=== PATIENT | female | born 1985 | race Caucasian/White ===

== ENCOUNTER → 2017-03-19 | Outpatient (CLI) | payer MEDICAID, OTHER | LOC: HPND 08:18 | PROVIDERS: ATTEND Obstetrics & Gynecology | DX: O35.0XX0 Maternal care for (suspected) central nervous system malformation in fetus, not applicable or unspecified (principal); O28.3 Abnormal ultrasonic finding on antenatal screening of mother; O35.1XX0 Maternal care for (suspected) chromosomal abnormality in fetus, not applicable or unspecified | CPT/HCPCS: 76811; 76825; 76827; 93325 ==

== ENCOUNTER → 2017-04-02 | Outpatient (CLI) | payer OTHER | LOC: HPND 08:22 | PROVIDERS: ATTEND Obstetrics & Gynecology | DX: O35.0XX0 Maternal care for (suspected) central nervous system malformation in fetus, not applicable or unspecified (principal) | CPT/HCPCS: 76815 ==

== ENCOUNTER → 2017-04-23 | Outpatient (CLI) | payer OTHER | LOC: HPND 08:17 | PROVIDERS: ATTEND Obstetrics & Gynecology | DX: O35.1XX0 Maternal care for (suspected) chromosomal abnormality in fetus, not applicable or unspecified (principal) | CPT/HCPCS: 76816 ==

== ENCOUNTER 2017-06-12 14:11 | Inpatient (IN) | payer OTHER ==
[2017-06-12] VITALS (63 sets, daily range): BP systolic 75–136; BP diastolic 48–107; PULSE 65–173; RESP 18–20; TEMP 98–98.7
[~2017-06-12] VITALS: Ht 162.6 cm; Wt 67.0 kg
[~2017-06-12 14:11] MED LIST: IBUP600 PO; PERI8.6T PO
[2017-06-12] MEDS ORDERED: PREN29TA PO (14:37)
[2017-06-12] MEDS ORDERED: LACTATED RINGER'S 1000 ML INJ 1,000 ML IV PRN (15:04)
--- NOTE | 2017-06-12 15:04 | HHI.HP ---
HPI Chief Complaint Water broke not in pain Date Seen: Jun 12, 2017 Time Seen: 14:55 Travel History International Travel<30 Days: No Contact w/Intl Traveler<30Days: No Known Affected Area: No History of Present Illness HPI Patient is a 31-year-old white female at [address] Ortiz for care and complain s of spontaneous rupture membranes at 11:00 today , no contractions or pain no bleeding, heart rate tracing is reactive and she is not julián on the monitor Weeks Gestation: 36 Para: 2 : 4 Miscarriage: 1 History Obstetric History Obstetric History 2 vaginal deliveries at term Social History Alcohol Use: No Tobacco Use: No Substance Abuse: No Allergies-Medications (Allergen,Severity, Reaction): Coded Allergies: No Known Allergies (Verified Allergy, Unknown, 06/12/17) Home Meds Reported Medications Vit-Iron Carbonyl ( Plus Iron 29-1 mg) 29 Mg Iron-1 Mg Tab, 1 TAB PO DAILY for Nutritional Supplement, #30 TAB 0 Refills 06/12/17 Review of Systems General / Constitutional: No: Fever, Weight Gain, Chills, Other Eyes: No: Diploplia, Blurred Vision, Visual changes, Pain, Photophobia HENT: No: Headaches, Vertigo, Lightheadedness Cardiovascular: No: Irregular Rhythm, Chest Pain or Discomfort, Palpitations, Tachycardia, Syncope, Varicosities, Edema, Cyanosis Respiratory: No: Cough, Short of Breath, Other Gastrointestinal: No: Nausea, Vomiting, Diarrhea Genitourinary: No: Decreased Urinary Output, Oliguria Musculoskeletal: No: Limited ROM, Weakness, Cramping, Edema, Pain Skin: No Rash, No Itching, No Dryness, No Lumps, No Change in Pigmentation, No Change in Nails, No Alopecia, No Lesions Neurologic: No: Weakness, Dizziness, Syncope, Focal Abnormalities, Coordination Problem, Headache, Slurred Speech, Seizures Psychiatric: No: Depression, Suicidal Ideations, Homicidal Ideation Endocrine: No: Heat Intolerance, Cold Intolerance, Polydipsia, Polyuria, Other Physical Exam Narrative GENERAL: Well-nourished, well-developed patient. SKIN: Warm and dry. HEAD: Normocephalic and atraumatic. EYES: No scleral icterus. No injection or drainage. ENT: No nasal drainage noted. Mucous membranes pink. Airway patent. NECK: Supple, trachea midline. No JVD. CARDIOVASCULAR: Regular rate and rhythm without murmurs, gallops, or rubs. RESPIRATORY: Breath sounds equal bilaterally. No accessory muscle use. BREASTS: Bilateral exam showed no masses , no retractions, no nipple discharge. ABDOMEN/GI: Abdomen soft, non-tender, bowel sounds present, no rebound, no guarding Gravid to [36-] weeks size Fundal Height: [36-] GENITOURINARY: External Genitalia: intact and normal in appearance BUS glands: [-] Cervix: [Posterior-] Dilatation: [Finger tip] Effacement: [-Thick] Station: [-3] Presentation: [vtx-] Membranes: [ ruptured] Uterine Contractions: [-No regular contractions] FHT's: Category: [1-] Baseline: [-133] Reactive: [R-] Variability: [mod-] Decels: [none-] EXTREMITIES: No cyanosis or edema. BACK: Nontender without obvious deformity. No CVA tenderness. NEUROLOGICAL: Awake and alert. Motor and sensory grossly within normal limits. Five out of 5 muscle strength in all muscle groups. Normal speech. Caprini VTE Risk Assessment Caprini VTE Risk Assessment: No/Low Risk (score <= 1) Caprini Risk Assessment Model Point Value = 1 Point Value = 2 Point Value = 3 Point Value = 5 Age 41-60 Minor surgery BMI > 25 kg/m2 Swollen legs Varicose veins or History of unexplained or recurrent spontaneous Oral contraceptives or hormone replacement Sepsis (< 1 month) Serious lung disease, including pneumonia (< 1 month) Abnormal pulmonary function Acute myocardial infarction Congestive heart failure (< 1 month) History of inflammatory bowel disease Medical patient at bed rest Age 61-74 Arthroscopic surgery Major open surgery (> 45 min) Laparoscopic surgery (> 45 min) Malignancy Confined to bed (> 72 hours) Immobilizing plaster cast Central venous access Age >= 75 History of VTE Family history of VTE Factor V Leiden Prothrombin [id number] Lupus anticoagulant Anticardiolipin antibodies Elevated serum homocysteine Heparin-induced thrombocytopenia Other congenital or acquired thrombophilia Stroke (< 1 month) Elective arthroplasty Hip, pelvis, or leg fracture Acute spinal cord injury (< 1 month) Prophylaxis Regimen Total Risk Factor Score Risk Level Prophylaxis Regimen 0-1 Low Early ambulation 2 Moderate Order ONE of the following: *Sequential Compression Device (SCD) *Heparin 5000 units SQ BID 3-4 Higher Order ONE of the following medications: *Heparin 5000 units SQ TID *Enoxaparin/Lovenox 40 mg SQ daily (WT < 150 kg, CrCl > 30 mL/min) *Enoxaparin/Lovenox 30 mg SQ daily (WT < 150 kg, CrCl > 10-29 mL/min) *Enoxaparin/Lovenox 30 mg SQ BID (WT < 150 kg, CrCl > 30 mL/min) AND/OR *Sequential Compression Device (SCD) 5 or more Highest Order ONE of the following medications: *Heparin 5000 units SQ TID (Preferred with Epidurals) *Enoxaparin/Lovenox 40 mg SQ daily (WT < 150 kg, CrCl > 30 mL/min) *Enoxaparin/Lovenox 30 mg SQ daily (WT < 150 kg, CrCl > 10-29 mL/min) *Enoxaparin/Lovenox 30 mg SQ BID (WT < 150 kg, CrCl > 30 mL/min) AND *Sequential Compression Device (SCD) Data Data Labs amnisure positive Assessment/Plan Assessment and Plan Patient is a 31-year-old white female at [address] Ortiz for care presents with spontaneous rupture membranes, no bleeding no contractions. heart rate tracing is reactive, and amnisure positive Plan-admission the hospital, augment/induce labor, do a rapid GBS screen, anticipate vaginal delivery, this case was discussed with Dr. Ortiz who agrees on the our management plan Wu Wolf II, MD Jun 12, 2017 15:04
[2017-06-12] MEDS ORDERED: SODIUM CHLORID 0.9% 500 ML INJ 500 ML IV PRN (15:15)
[2017-06-12] MEDS ORDERED: CITRIC ACID-SODIUM CITRATE LIQ 30 ML UDC PO SCH (15:15)
[2017-06-12] MEDS ORDERED: LIDOCAINE HCL 1% 50 ML VIAL I-DERMAL PRN (15:15)
[2017-06-12] MEDS ORDERED: MINERAL OIL 10 ML VIAL TOPICAL PRN (15:15)
[2017-06-12] MEDS ORDERED: LIDOCAINE HCL 1% 50 ML VIAL INFIL PRN (15:15)
[2017-06-12] MEDS ORDERED: OXYTOCIN 30 UNITS-500ML PREMIX 500 ML IV ONE (15:15)
[2017-06-12] MEDS ORDERED: PENICILLIN G POTASSIUM INJ 5,000,000 UNITS in SODIUM CHLORIDE 0.9% INJ 100 ML IV ONE (15:15)
[2017-06-12] MEDS ORDERED: OXYTOCIN 30 UNITS-500ML PREMIX 500 ML IV PRN (15:15)
[2017-06-12] MEDS ORDERED: SODIUM CHLOR 0.9% 1000 ML INJ 1,000 ML IV PRN (15:24)
[2017-06-12] MEDS: LACTATED RINGER'S 1000 ML INJ 1,000 ML IV SCH ×3 (15:44→20:28)
[2017-06-12 16:04] LABS: AMORPHOUS SEDIMENT, URINE RARE; AUTOMATED NEUTROPHIL # 10.2 TH/MM3 (1.8-7.7); BACTERIA, URINE RARE /hpf; BASOPHIL # 0.1 TH/MM3 (0-0.2); BASOPHIL % 0.4 % (0.0-2.0); BILIRUBIN, URINE NEG (NEG); BLOOD, URINE MOD (NEG); EOSINOPHIL # 0.1 TH/MM3 (0-0.4); EOSINOPHIL % 0.6 % (0.0-4.0); GLUCOSE,URINE NEG (NEG); HEMATOCRIT 35.9 % (35.0-46.0); HEMOGLOBIN 12.2 GM/DL (11.6-15.3); KETONE, URINE 10 mg/dL (NEG); LYMPH % 11.7 % (9.0-44.0); LYMPHOCYTE # 1.5 TH/MM3 (1.0-4.8); MEAN CELL VOLUME 86.6 FL (80.0-100.0); MEAN CORPUSCULAR HEMOGLOBIN 29.3 PG (27.0-34.0); MEAN CORPUSCULAR HGB CONC 33.9 % (32.0-36.0); MEAN PLATELET VOLUME 9.1 FL (7.0-11.0); MONO % 7.5 % (0.0-8.0); MUCUS URINE FEW /lpf (OCC); NEUT % 79.8 % (16.0-70.0); NITRITE,URINE NEG (NEG); PH, URINE 6.5 (5.0-8.5); PLATELET COUNT 199 TH/MM3 (150-450); RED BLOOD COUNT 4.14 MIL/MM3 (4.00-5.30); RED CELL DISTRIBUTION WIDTH 12.6 % (11.6-17.2); SQUAMOUS EPITHELIAL CELL URINE 10 /hpf (0-5); URINE COLOR LIGHT-YELLOW (YELLW/STRAW); URINE LEUKOCYTE ESTERASE NEG (NEG); WHITE BLOOD COUNT 12.7 TH/MM3 (4.0-11.0)
--- NOTE | 2017-06-12 16:37 | PD.LABORPN ---
Subjective Subjective 36 o/7 week with gross SROM GBS just done yesterday no PTL, GDM or HTN issues PNC with HOGA Objective Vital Signs Vital Signs Date Time Temp Pulse Resp B/P (MAP) Pulse Ox O2 Delivery O2 Flow Rate FiO2 06/12/17 16:27 98.0 95 20 97/65 (76) Objective not re examined long/closed per Dr. Wolf strip category 1 Weeks Gestation: 36 Gest Age Assessed Date: Jun 12, 2017 Yajaira Ortiz MD Jun 12, 2017 16:37
[2017-06-12] MEDS ORDERED: fentaNYL 2MCG-BUPIV 0.125% INJ 100 ML ONE (17:36)
[2017-06-12] MEDS: PENICILLIN G POTASSIUM INJ 2,500,000 UNITS in SODIUM CHLORIDE 0.9% INJ 100 ML IV SCH ×2 (19:15→23:15)
[2017-06-12] MEDS ORDERED: ePHEDrine/NS 25 MG/5 ML SYRINGE ONE (19:34)
[2017-06-12] MEDS ORDERED: ePHEDrine/NS 25 MG/5 ML SYRINGE IV PUSH PRN (20:00)
[2017-06-12] MEDS ORDERED: DO NOT ADMINISTER ANTICOAGULANTS PRN (20:00)
[2017-06-12] MEDS ORDERED: NO SYSTEM NARCOTICS PRN (20:00)
[2017-06-12] MEDS: ONDANSETRON HCL 4 MG/2 ML VIAL IV PUSH PRN (20:45)
[2017-06-12] MEDS: fentaNYL 2MCG-BUPIV 0.125% 100 ML EPIDURAL SCH (21:00)
[2017-06-13] VITALS (122 sets, daily range): BP systolic 79–127; BP diastolic 39–73; PULSE 51–113; RESP 17–18; TEMP 98.1–99.1; O2SAT 100
[2017-06-13] MEDS: fentaNYL 2MCG-BUPIV 0.125% 100 ML EPIDURAL SCH (01:36)
[2017-06-13] MEDS: ONDANSETRON HCL 4 MG/2 ML VIAL IV PUSH PRN ×2 (03:13→14:49)
[2017-06-13] MEDS: LACTATED RINGER'S 1000 ML INJ 1,000 ML IV SCH ×2 (03:37→12:56)
[2017-06-13] MEDS ORDERED: BETAMETHASONE SOD PHOS/ACETATE SUSP 30 MG/5 ML VIAL IM SCH (08:01)
--- NOTE | 2017-06-13 08:07 | HHI.PR ---
INSEAM LEVELER Note Note S: Doing well, comfortable, no complaints O: Exam: Deferred, recent check at 3am, 1-2 cm/50% effaced/-3 FHTs: 130s, moderate variability, accelerations present, no decelerations TOCO: Contractions every 3 minutes A/P 31-year-old 012 at 36 weeks and 1 day admitted for P PROM 1. IUP: cat 1 tracing -Male fetus, cephalic by ultrasound this morning, EFW 7 pounds, GBS unknown, rapid negative 2. PPROM / Augmentation: Continue Pitocin, discussed benefits of late betamethasone, will provide this now to repeat in 24 hours is still . -Prematurity: Unsure of accuracy rapid GBS, will restart penicillin for prophylaxis Pedro Luis Valdes MD Jun 13, 2017 08:07
--- NOTE | 2017-06-13 08:15 | PD.LABORPN ---
Subjective Subjective Comfortable with antinausea medication will get late bethamethasone x 1 now on penicillin afebril strip category one Objective Vital Signs Vital Signs Date Time Temp Pulse Resp B/P (MAP) Pulse Ox O2 Delivery O2 Flow Rate FiO2 06/13/17 08:00 71 104/66 (79) 06/13/17 08:00 67 06/13/17 07:45 74 111/67 (82) 06/13/17 07:45 74 06/13/17 07:32 17 06/13/17 07:30 77 06/13/17 07:30 72 95/52 (66) 06/13/17 07:28 18 06/13/17 07:15 67 97/51 (66) 06/13/17 07:15 68 06/13/17 07:15 17 06/13/17 07:10 68 06/13/17 07:05 68 06/13/17 07:00 61 06/13/17 07:00 64 103/48 (66) 06/13/17 06:57 63 97/52 (67) 06/13/17 06:55 70 06/13/17 06:54 69 88/44 (59) 06/13/17 06:50 71 06/13/17 06:49 69 91/48 (62) 06/13/17 06:48 75 83/52 (62) 06/13/17 06:45 71 89/50 (63) 06/13/17 06:45 70 06/13/17 06:43 69 86/44 (58) 06/13/17 06:40 69 06/13/17 06:35 71 06/13/17 06:30 83 88/42 (57) 06/13/17 06:30 73 06/13/17 06:29 98.5 18 06/13/17 06:20 70 06/13/17 06:15 68 06/13/17 06:15 73 94/51 (65) 06/13/17 06:10 69 06/13/17 06:05 68 06/13/17 06:00 68 06/13/17 06:00 71 97/50 (66) 06/13/17 05:55 71 06/13/17 05:50 71 06/13/17 05:45 68 06/13/17 05:45 67 95/57 (70) 06/13/17 05:35 73 06/13/17 05:30 72 91/61 (71) 06/13/17 05:30 73 06/13/17 05:25 72 06/13/17 05:20 73 06/13/17 05:15 71 98/62 (74) 06/13/17 05:15 74 06/13/17 05:00 110 103/66 (78) 06/13/17 05:00 82 06/13/17 04:45 79 97/50 (66) 06/13/17 04:45 78 06/13/17 04:40 77 06/13/17 04:35 76 06/13/17 04:31 78 90/48 (62) 06/13/17 04:30 98.5 06/13/17 04:30 87 06/13/17 04:30 18 06/13/17 04:25 79 06/13/17 04:20 80 06/13/17 04:15 83 95/51 (66) 06/13/17 04:15 77 06/13/17 04:00 79 06/13/17 04:00 78 94/47 (63) 06/13/17 03:50 82 06/13/17 03:45 79 98/53 (68) 06/13/17 03:45 77 06/13/17 03:30 76 06/13/17 03:30 75 91/48 (62) 06/13/17 03:25 98 06/13/17 03:20 101 06/13/17 03:15 74 06/13/17 03:15 86 104/49 (67) 06/13/17 03:05 98.6 06/13/17 03:05 18 06/13/17 03:00 84 06/13/17 03:00 94 111/65 (80) 06/13/17 02:50 95 06/13/17 02:45 89 94/54 (67) 06/13/17 02:45 79 06/13/17 02:40 82 06/13/17 02:35 84 06/13/17 02:30 79 06/13/17 02:30 84 102/58 (73) 06/13/17 02:15 83 06/13/17 02:15 81 96/57 (70) 06/13/17 02:00 98.3 81 98/53 (68) 06/13/17 02:00 18 06/13/17 02:00 96 06/13/17 01:45 83 06/13/17 01:45 82 92/54 (67) 06/13/17 01:36 18 06/13/17 01:30 80 06/13/17 01:30 89 100/45 (63) 06/13/17 01:30 18 06/13/17 01:25 80 06/13/17 01:20 72 06/13/17 01:15 57 06/13/17 01:15 54 109/53 (71) 06/13/17 01:14 51 127/56 (79) 06/13/17 01:10 94 06/13/17 01:05 98 06/13/17 01:00 83 89/42 (58) 06/13/17 01:00 93 06/13/17 00:55 82 06/13/17 00:50 82 06/13/17 00:45 83 96/53 (67) 06/13/17 00:45 93 06/13/17 00:30 81 100/55 (70) 06/13/17 00:30 80 06/13/17 00:20 81 06/13/17 00:18 99.1 18 06/13/17 00:15 80 98/57 (71) 06/13/17 00:15 81 06/13/17 00:10 81 Objective 3/80/-1 not well applied needs frequent positional changes proven pelvis Weeks Gestation: 36 Gest Age Assessed Date: Jun 12, 2017 Gest Age Assessed Time: 08:13 Pt started active labor?: Yes Active labor start date: Jun 13, 2017 Active labor start time: 08:13 Medical induction of labor?: No Artificial rupture of membrane: No Assessment/Plan Assessment and Plan 36 week with SROM approaching 24 hours. now on antibitioic receiving one dose steroid stopping pit (18 mu/mi) for one hour and restarting treat nausea as needed anticipate Yajaira Jaimes MD Jun 13, 2017 08:15
[2017-06-13] MEDS ORDERED: PENICILLIN G POTASSIUM INJ 5,000,000 UNITS in SODIUM CHLORIDE 0.9% INJ 100 ML IV ONE (08:30)
[2017-06-13] MEDS: PENICILLIN G POTASSIUM INJ 2,500,000 UNITS in SODIUM CHLORIDE 0.9% INJ 100 ML IV SCH (12:57)
[2017-06-13] MEDS ORDERED: MEASLES, MUMPS, RUBELLA VACCINE 0.5 ML VIAL SQ ONE (16:00)
[2017-06-13] MEDS ORDERED: DIPHTH/TETANUS/ACEL PERTUSSIS (BOOSTER) 0.5 ML VIAL/PFS IM ONE (16:00)
--- NOTE | 2017-06-13 17:54 | PD.LABORPN ---
Subjective Subjective feeling pressure Objective Vital Signs Vital Signs Date Time Temp Pulse Resp B/P (MAP) Pulse Ox O2 Delivery O2 Flow Rate FiO2 06/13/17 12:10 103 06/13/17 12:05 96 06/13/17 12:00 97 90/55 (67) 06/13/17 12:00 100 06/13/17 11:40 89 06/13/17 11:35 89 06/13/17 11:34 92 97/49 (65) 06/13/17 11:30 92 06/13/17 11:30 89 88/43 (58) 06/13/17 11:05 95 06/13/17 11:00 94 101/49 (66) 06/13/17 11:00 113 06/13/17 10:35 90 06/13/17 10:30 86 06/13/17 10:30 85 89/58 (68) 06/13/17 10:14 91 06/13/17 10:14 97/73 (81) 06/13/17 10:10 83 06/13/17 10:09 17 06/13/17 10:05 84 06/13/17 10:05 94 06/13/17 10:00 79 06/13/17 10:00 79 79/39 (52) 06/13/17 09:55 81 Objective rim/0/100% strip category 1 Weeks Gestation: 36 Gest Age Assessed Date: Jun 12, 2017 Gest Age Assessed Time: 08:13 Pt started active labor?: Yes Active labor start date: Jun 13, 2017 Active labor start time: 08:13 Medical induction of labor?: No Artificial rupture of membrane: No Assessment/Plan Assessment and Plan begin pushing in a few minutes Yajaira Ortiz MD Jun 13, 2017 17:54
--- NOTE | 2017-06-13 18:24 | PD.OB.DELI ---
Weeks gestation: 36 Gest age assessed date: Jun 12, 2017 Gest age assessed time: 08:13 Pt started active labor?: Yes Active labor start date: Jun 13, 2017 Active labor start time: 08:13 Medical induction of labor?: No Artificial rupture of membrane: No Anesthesia: Epidural Episiotomy: None Vaginal Delivery: Normal Presentation: Occiput anterior Nuchal Cord: x1 Delayed cord clamping (45 sec): Yes Infant: Male Delivery date: Jun 13, 2017 Delivery time: 18:24 One Minute : 8 Five Minute : 9 Placenta: Spontaneous delivery Laceration: No lacerations Yajaira Ortiz MD Jun 13, 2017 18:24
[2017-06-13] MEDS ORDERED: BENZOCAINE 20% TOPICAL SPRAY 60 ML CAN TOPICAL PRN (18:30)
[2017-06-13] MEDS ORDERED: SODIUM CHLORIDE 0.9% FLUSH 10 ML FLUSH IV FLUSH PRN (18:30)
[2017-06-13] MEDS ORDERED: WITCH HAZEL 50%/GLYCERIN 12.5% 40 PAD JAR TOPICAL PRN (18:30)
[2017-06-13] MEDS ORDERED: OXYTOCIN 30 UNITS-500ML PREMIX 500 ML IV SCH (18:30)
[2017-06-13] MEDS ORDERED: DOCUSATE SODIUM 50 MG/SENNA 8.6 MG TAB PO PRN (18:30)
[2017-06-13] MEDS ORDERED: ONDANSETRON ODT 4 MG TAB PO PRN (18:30)
[2017-06-13] MEDS ORDERED: ALUMINUM/MAGNESIUM/SIMETH 30 ML CUP PO PRN (18:30)
[2017-06-13] MEDS ORDERED: IBUP-232 PO (18:58)
--- NOTE | 2017-06-13 18:59 | HHI.DCPOC ---
Discharge Care Plan Diagnosis: (1) Normal vaginal delivery Your Health Problems Are: Vaginal delivery Report Symptoms to Your Doctor -Temperature above 100.5 degrees -Redness, of incision or excessive or foul smelling drainage -Unusual pain or calf pain -Increased vaginal bleeding -Painful or difficulty urinating -Feelings of extreme sadness or anxiety after 2 weeks Goals to Promote Your Health * To prevent worsening of your condition and complications * To maintain your health at the optimal level Directions to Meet Your Goals Take your medications as prescribed Follow your dietary instruction Follow activity as directed Ensure plenty of rest for recovery Drink fluids for hydration Keep your appointments as scheduled Take your immunizations and boosters as scheduled If your symptoms worsen call your PCP, if no PCP go to Urgent Care Center or Emergency Room Smoking is Dangerous to Your Health. Avoid second hand smoke Call the 24-hour crisis hotline for domestic abuse at Pedro Luis Valdes MD Jun 13, 2017 18:59
[2017-06-13] MEDS: IBUPROFEN 800 MG TAB PO PRN (19:50)
[2017-06-13] MEDS: ACETAMINOPHEN 325 MG TAB PO PRN (19:50)
[2017-06-13] MEDS ORDERED: ZOLPIDEM TARTRATE 5 MG TAB PO PRN (21:00)
[2017-06-13] MEDS ORDERED: SODIUM CHLORIDE 0.9% FLUSH 10 ML FLUSH IV FLUSH SCH (21:00)
[2017-06-14] MEDS: ACETAMINOPHEN 325 MG TAB PO PRN ×5 (01:52→22:27)
[2017-06-14] MEDS: IBUPROFEN 800 MG TAB PO PRN ×3 (04:07→22:26)
[2017-06-14 08:00] VITALS: BP 89/55; PULSE 66; RESP 16; TEMP 98.1; O2SAT 96
--- NOTE | 2017-06-14 08:00 | HHI.OB ---
Subjective Post Day: 1 Remarks doing well, cramping, VB < mesnes, pain controlled Objective Vitals/I&O Vital Signs Date Time Temp Pulse Resp B/P (MAP) Pulse Ox O2 Delivery O2 Flow Rate FiO2 06/13/17 22:45 98.1 06/13/17 22:45 79 18 96/60 (72) 06/13/17 19:30 18 06/13/17 19:15 18 06/13/17 19:15 65 105/65 (78) 06/13/17 19:05 100 06/13/17 19:05 64 06/13/17 19:00 102/61 (75) 06/13/17 19:00 100 06/13/17 12:10 103 06/13/17 12:05 96 06/13/17 12:00 97 90/55 (67) 06/13/17 12:00 100 06/13/17 11:40 89 06/13/17 11:35 89 06/13/17 11:34 92 97/49 (65) 06/13/17 11:30 92 06/13/17 11:30 89 88/43 (58) 06/13/17 11:05 95 06/13/17 11:00 94 101/49 (66) 06/13/17 11:00 113 06/13/17 10:35 90 06/13/17 10:30 86 06/13/17 10:30 85 89/58 (68) 06/13/17 10:14 91 06/13/17 10:14 97/73 (81) 06/13/17 10:10 83 06/13/17 10:09 17 06/13/17 10:05 84 06/13/17 10:05 94 06/13/17 10:00 79 06/13/17 10:00 79 79/39 (52) 06/13/17 09:55 81 06/13/17 09:50 80 06/13/17 09:45 76 06/13/17 09:40 85 06/13/17 09:35 85 06/13/17 09:30 18 06/13/17 09:30 81 06/13/17 09:30 98.3 06/13/17 09:30 79 89/45 (60) 06/13/17 09:25 94 06/13/17 09:20 90 06/13/17 09:15 80 06/13/17 09:15 78 102/60 (74) 06/13/17 09:15 17 06/13/17 09:05 81 06/13/17 09:00 78 93/57 (69) 06/13/17 09:00 72 06/13/17 08:55 86 06/13/17 08:50 86 06/13/17 08:45 86 06/13/17 08:45 78 101/61 (74) 06/13/17 08:40 81 06/13/17 08:35 78 06/13/17 08:30 78 96/63 (74) 06/13/17 08:30 78 06/13/17 08:25 87 06/13/17 08:20 80 06/13/17 08:15 87 110/67 (81) 06/13/17 08:15 71 06/13/17 08:11 18 06/13/17 08:10 73 06/13/17 08:05 73 06/13/17 08:00 71 104/66 (79) 06/13/17 08:00 67 Objective Remarks GENERAL: Well-nourished, well-developed patient. CARDIOVASCULAR: Regular rate and rhythm without murmurs, gallops, or rubs. RESPIRATORY: Breath sounds equal bilaterally. No accessory muscle use. ABDOMEN/GI: Abdomen soft, non-tender. Fundus: Firm, non-tender at umbilicus. GENITOURINARY: Light to moderate bleeding. EXTREMITIES: No cyanosis or edema, non-tender, without signs of DVT. Medications and IVs Current Medications Medications (Trade) Dose Ordered Sig/Mihai Route Start Time Stop Time Status Last Admin Lactated Ringer's 1,000 ml @ 125 mls/hr Q8H IV 06/12/17 15:04 06/13/17 12:56 Lactated Ringer's 1,000 ml @ 3,000 mls/hr Q20M PRN IV 06/12/17 15:04 Sodium Chloride 1,000 ml @ 100 mls/hr Q10H PRN IV 06/12/17 15:24 (Xylocaine 1% Inj (50 ml)) 0.1 ml UNSCH X1 PRN I-DERMAL 06/12/17 15:15 06/15/17 15:14 (Bicitra Liq) 30 ml FLOOR COVERING PRINTER ASSISTANT PO 06/12/17 15:15 06/16/17 15:14 (fentaNYL INJ) 50 mcg Q1H PRN IV PUSH 06/12/17 15:15 (fentaNYL INJ) 100 mcg Q1H PRN IV PUSH 06/12/17 15:15 (Xylocaine 1% Inj (50 ml)) 10 ml UNSCH X1 PRN INFIL 06/12/17 15:15 06/14/17 15:14 (Muri-Lube Oil) 10 ml UNSCH PRN TOPICAL 06/12/17 15:15 Oxytocin 500 ml @ 1 mls/hr TITRATE PRN IV 06/12/17 15:15 06/12/17 15:47 Fentanyl/ Bupivacaine HCl 100 ml @ 0 mls/hr TITRATE EPIDURAL 06/12/17 20:00 06/13/17 01:36 (Zofran Inj) 4 mg Q6H PRN IV PUSH 06/12/17 21:00 06/13/17 14:49 Penicillin G Potassium [id number] units/Sodium Chloride 100 ml @ 200 mls/hr Q4H IV 06/13/17 13:00 06/13/17 12:57 (NS Flush) 2 ml BID IV FLUSH 06/13/17 21:00 (NS Flush) 2 ml UNSCH PRN IV FLUSH 06/13/17 18:30 (Tylenol) 650 mg Q4H PRN PO 06/13/17 18:30 06/14/17 06:36 (Motrin) 800 mg Q8H PRN PO 06/13/17 18:30 06/14/17 04:07 (Americaine 20% Top Spr) 1 spray Q4H PRN TOPICAL 06/13/17 18:30 (Tucks Pads) 1 applic QID PRN TOPICAL 06/13/17 18:30 (Paula-Colace) 2 tab Q12H PRN PO 06/13/17 18:30 06/13/17 19:50 (Ambien) 5 mg HS PRN PO 06/13/17 21:00 (Mag-Al Plus Susp Liq) 15 ml Q8H PRN PO 06/13/17 18:30 (Zofran Odt) 4 mg Q6H PRN PO 06/13/17 18:30 (M-M-R Ii Inj) 0.5 ml ONCE ONCE SQ 06/14/17 16:00 06/14/17 16:01 Assessment/Plan Assessment and Plan Patient is a 31 yo s/p at 36w1d 1. PPD #1: AF, VSS, doing well, anticipate d/c home tomorrow - Male , circ tomorrow. Pedro Luis Valdes MD Jun 14, 2017 08:00
[2017-06-14] MEDS ORDERED: MEASLES, MUMPS, RUBELLA VACCINE 0.5 ML VIAL SQ ONE (16:00)
[2017-06-14 19:40] VITALS: BP 104/68; PULSE 84; RESP 16; TEMP 98.3; O2SAT 98
[2017-06-15] MEDS: LACTATED RINGER'S 1000 ML INJ 1,000 ML IV SCH (07:04)
--- NOTE | 2017-06-15 07:07 | HHI.OB ---
Subjective Post Day: 2 Remarks doing well, no change from yesterday Objective Vitals/I&O Vital Signs Date Time Temp Pulse Resp B/P (MAP) Pulse Ox O2 Delivery O2 Flow Rate FiO2 06/14/17 19:40 98.3 84 16 104/68 (80) 98 06/14/17 08:00 89/55 (66) 06/14/17 08:00 98.1 66 16 96 Objective Remarks GENERAL: Well-nourished, well-developed patient. CARDIOVASCULAR: Regular rate and rhythm without murmurs, gallops, or rubs. RESPIRATORY: Breath sounds equal bilaterally. No accessory muscle use. ABDOMEN/GI: Abdomen soft, non-tender. Fundus: Firm, non-tender at umbilicus. GENITOURINARY: Light to moderate bleeding. EXTREMITIES: No cyanosis or edema, non-tender, without signs of DVT. Medications and IVs Current Medications Medications (Trade) Dose Ordered Sig/Mihai Route Start Time Stop Time Status Last Admin Lactated Ringer's 1,000 ml @ 125 mls/hr Q8H IV 06/12/17 15:04 06/13/17 12:56 Lactated Ringer's 1,000 ml @ 3,000 mls/hr Q20M PRN IV 06/12/17 15:04 Sodium Chloride 1,000 ml @ 100 mls/hr Q10H PRN IV 06/12/17 15:24 (Xylocaine 1% Inj (50 ml)) 0.1 ml UNSCH X1 PRN I-DERMAL 06/12/17 15:15 06/15/17 15:14 (Bicitra Liq) 30 ml VP PURCHASING PO 06/12/17 15:15 06/16/17 15:14 (fentaNYL INJ) 50 mcg Q1H PRN IV PUSH 06/12/17 15:15 (fentaNYL INJ) 100 mcg Q1H PRN IV PUSH 06/12/17 15:15 (Muri-Lube Oil) 10 ml UNSCH PRN TOPICAL 06/12/17 15:15 Oxytocin 500 ml @ 1 mls/hr TITRATE PRN IV 06/12/17 15:15 06/12/17 15:47 Fentanyl/ Bupivacaine HCl 100 ml @ 0 mls/hr TITRATE EPIDURAL 06/12/17 20:00 06/13/17 01:36 (Zofran Inj) 4 mg Q6H PRN IV PUSH 06/12/17 21:00 06/13/17 14:49 Penicillin G Potassium [id number] units/Sodium Chloride 100 ml @ 200 mls/hr Q4H IV 06/13/17 13:00 06/13/17 12:57 (NS Flush) 2 ml BID IV FLUSH 06/13/17 21:00 (NS Flush) 2 ml UNSCH PRN IV FLUSH 06/13/17 18:30 (Tylenol) 650 mg Q4H PRN PO 06/13/17 18:30 06/14/17 22:27 (Motrin) 800 mg Q8H PRN PO 06/13/17 18:30 06/14/17 22:26 (Americaine 20% Top Spr) 1 spray Q4H PRN TOPICAL 06/13/17 18:30 (Tucks Pads) 1 applic QID PRN TOPICAL 06/13/17 18:30 (Paula-Colace) 2 tab Q12H PRN PO 06/13/17 18:30 06/13/17 19:50 (Ambien) 5 mg HS PRN PO 06/13/17 21:00 (Mag-Al Plus Susp Liq) 15 ml Q8H PRN PO 06/13/17 18:30 (Zofran Odt) 4 mg Q6H PRN PO 06/13/17 18:30 Assessment/Plan Assessment and Plan Patient is a 31 yo s/p at 36w1d 1. PPD #1: AF, VSS, doing well, d/c home, discussed precautions, expectations and follow up. - Male , s/p circ Pedro Luis Valdes MD Jun 15, 2017 07:07
[2017-06-15] MEDS: PENICILLIN G POTASSIUM INJ 2,500,000 UNITS in SODIUM CHLORIDE 0.9% INJ 100 ML IV SCH (07:17)
[2017-06-15] MEDS: IBUPROFEN 800 MG TAB PO PRN (07:53)
[2017-06-15] MEDS: ACETAMINOPHEN 325 MG TAB PO PRN (07:53)
== END 2017-06-15 10:18 | disposition home or self-care (01) | DRG 775 ==
LOC: HOBED 14:11 → H2EB 15:02 → H1EA 06-13 22:05
PROVIDERS: ADMIT Obstetrics & Gynecology; ATTEND Obstetrics & Gynecology
PROC: 3E033VJ Introduction of Other Hormone into Peripheral Vein, Percutaneous Approach (ICD-10-PCS; 2017-06-12)
PROC: 3E0R3BZ Introduction of Anesthetic Agent into Spinal Canal, Percutaneous Approach (ICD-10-PCS; 2017-06-12)
PROC: 00HU33Z Insertion of Infusion Device into Spinal Canal, Percutaneous Approach (ICD-10-PCS; 2017-06-12)
PROC: 10E0XZZ Delivery of Products of Conception, External Approach (ICD-10-PCS; principal; 2017-06-13)
DX: O42.013 Preterm premature rupture of membranes, onset of labor within 24 hours of rupture, third trimester (principal); O75.89 Other specified complications of labor and delivery; R11.0 Nausea; Z37.0 Single live birth; Z3A.36 36 weeks gestation of pregnancy
CPT/HCPCS: 59020; 80307; 81001; 84112; 85025; 86850; 86900; 86901; 87081; 87150; 90707; 90715; J0702; J2405; J2540; J2590; J7120